=== PATIENT | female | born 1960 | race Caucasian/White ===

== ENCOUNTER → 2024-10-11 07:21 | Outpatient (REF) | payer BC, SELFPAY | LOC: HWRAD 07:21 | PROVIDERS: ATTENDING PHYSICIAN Physician Assistant | DX: N32.9 Bladder disorder, unspecified (principal) | CPT/HCPCS: 76770 ==

== ENCOUNTER → 2024-11-18 14:24 | Outpatient (REF) | payer BC, SELFPAY | LOC: WDC 14:24 | PROVIDERS: ATTENDING PHYSICIAN Physician Assistant | DX: Z13.820 Encounter for screening for osteoporosis (principal); Z12.31 Encounter for screening mammogram for malignant neoplasm of breast | CPT/HCPCS: 77063; 77067; 77080 ==

== ENCOUNTER 2024-11-22 06:27 | Day surgery (SDC) | payer BC, SELFPAY | END 2024-11-22 15:28 | disposition home or self-care (01) | LOC: GI 06:27 | PROVIDERS: ATTENDING PHYSICIAN Internal Medicine Gastroenterology | DX: Z12.11 Encounter for screening for malignant neoplasm of colon (principal); K63.5 Polyp of colon; K64.8 Other hemorrhoids; Z80.0 Family history of malignant neoplasm of digestive organs | CPT/HCPCS: 45380; 88305 ==